=== PATIENT | female | born 1980 | race Caucasian/White ===

== ENCOUNTER 2023-06-07 08:03 | Outpatient (OUT) | payer BC, SELFPAY ==
--- NOTE | 2023-06-07 | XR_ITS ---
The [address] [address] Patient Name: SIENNA BECKHAM MRN: [id number] date: 1980 Sex: F Assigned Patient Location: [facility] Current Patient Location: [facility] Accession/Order Number: [id number] Exam Date: 06/07/2023 14:44 Report Date: 06/07/2023 16:30 At the request of: MERRITT MATTHEW Procedure: XR foot RANJIT min 3V STUDY: XR foot RANJIT min 3V, [id number] HISTORY: LT FOOT 2ND TOE PAIN, RIGHT FOOT PLANTAR FACIITIS COMPARISON: None FINDINGS: No acute fracture, dislocation, or suspicious osseous lesion. Bilateral hallux valgus with mild bunion deformity. Trace right-sided plantar calcaneal spur. Borderline bilateral pes planus. No significant joint degenerative changes. XR/XR foot RANJIT min 3V IMPRESSION: 1. No osseous abnormality of the left second toe. 2. Tiny right-sided plantar calcaneal spur. Electronically authenticated by: ALFREDO WINTER Date: 06/07/2023 16:30
== END 2023-06-07 08:04 | disposition home or self-care (01) ==
PROVIDERS: Visit Provider Physician Assistant
DX: M79.672 Pain in left foot (principal); M79.671 Pain in right foot; M77.31 Calcaneal spur, right foot
CPT/HCPCS: 73630